=== PATIENT | female | born 1985 | race African-American/Black ===

== ENCOUNTER 2017-02-16 20:52 | Emergency (ER) | payer MEDICAID ==
[~2017-02-16] VITALS: Ht 152.4 cm; Wt 85.0 kg
[2017-02-16 22:19] VITALS: BP 139/72
== END 2017-02-17 01:43 | disposition home or self-care (01) ==
LOC: ER 02-17 00:34
DX: M54.2 Cervicalgia (principal); M54.9 Dorsalgia, unspecified; Z98.890 Other specified postprocedural states
CPT/HCPCS: 99283